=== PATIENT | female | born 1950 | race Caucasian/White ===

== ENCOUNTER → 2024-11-02 07:11 | Outpatient (REF) | payer OTHER, SELFPAY | LOC: RAD 07:11 | PROVIDERS: ATTENDING PHYSICIAN Orthopaedic Surgery; FAMILY PHYSICIAN Internal Medicine | DX: M79.662 Pain in left lower leg (principal) | CPT/HCPCS: 93971 ==

== ENCOUNTER 2024-11-07 15:30 | Observation (INO) | payer OTHER, SELFPAY ==
[2024-11-07] VITALS (11 sets, daily range): BP systolic 105–157; BP diastolic 70–99; BMI 20.9; BMI 20.6
--- NOTE | 2024-11-07 09:03 | ED.GENMED ---
History of Present Illness
General
Chief Complaint: Back Pain
Source: patient
Exam Limitations: none
Time Seen by Provider: 11/07/24 09:00
History of Present Illness
History of Present Illness:
74yoF with a history of osteoporosis and remote history of thyroid cancer in the 80s currently on Synthroid presenting with her for evaluation of leg weakness. She started to experience balance issues at the end of August. She typically walks
4+ miles a day but now feels like she is trudging. She feels like both of her legs are weak, particularly from the knees down. Patient is very active and does yoga. She is now unable to do a tree pose. She also reports low back discomfort which
she believes started after her balance issues began. Her back pain is worse in the left lower lumbar region. There has been no trauma. She has no symptoms in the upper extremities. She denies any paresthesias, bowel/bladder issues, visual
changes, headache. Patient has been seen by her PCP for these symptoms and has an MRI of her brain and lumbar spine scheduled in August. She has been participating in physical therapy for the past 6 weeks and has not noticed any improvement. She is
particularly having difficulty with standing up on her toes while participating in PT. Patient is very concerned and feels like she will not be able to walk if her symptoms are not addressed.
Phy Exam
General Physical Exam
General Presentation: well appearing and no apparent distress
General Skin: warm and dry
General Habitus: normal
General Mental: alert
ENT Exam
ENT Exam: normocephalic
Pulmonary Exam
Pulmonary Exam: no respiratory distress
Neurological Exam
Neurological Exam: alert, CN II-XII intact, normal reflexs, no sensory deficits, speech normal and other (Ambulated without difficulty into exam room. 4/5 strength with L hip extension bilaterally. No foot drop. No sensory deficit noted in lower
extremities. 2+ patellar reflexes. )
[place] Coma Scale
Eye Opening: Spontaneous
Verbal Response: Oriented
Motor Response: Obeys Commands
GCS Total Score: 15
Musculoskeletal Exam
Musculoskeletal Exam: other (+Tenderness to bilateral lumbar region. No skin changes. Able to flex trunk to 90 degrees.)
Skin Exam
Skin Exam: normal color and warm/dry
Psychiatric Exam
Psychiatric Exam: normal mood/affect
Course
Orders/Labs/Results
Orders:
Orders
11/07/24 09:26
CT Head W/o Iv Contrast Urgent
Comment:
Reason For Exam: leg weakness
CT Lumbar Spine W/o Iv Contras Urgent
Comment:
Reason For Exam: low back pain, leg weakness
11/07/24 10:13
NEUROLOGY CONSULT Urgent
Consulting Provider: Kahlil Smalls
Was physician already notified: Yes
11/07/24 11:40
Acetaminophen [Tylenol] 1,000 mg PO NOW STA
Ibuprofen [Motrin] 600 mg PO NOW STA
11/07/24 15:09
Admit/Transfer Patient As Directed
Co-Sign Provider:
Level of Care: Observation services
Assign to:: Medical/Surgical
Physician / Group: [facility]
Diagnosis: Subacute progressive lower extremity weakness with gait imbalance
Reason for Hospitalization: Subacute progressive lower extremity weakness with gait imbalance failed OP PT
11/07/24 15:11
Code Status As Directed
Resuscitation Status: Full Code
11/07/24 15:13
MA Neck Without Contrast Routine
Comment:
Reason For Exam: myelopathy
OK for patient to be off Cardiac Monitoring for MRI: Yes
Recent pill cam endoscopy?: No
Pacemaker/Defibrillator?: No
Brain Aneurysm Clips?: No
Have you ever worked with metal? grinding metal? welding?: No
Cochlear(ear) implants?: No
Does Pt have a Temp Sensing Cath?: No
Does the patient have IV access?: Yes
Does the patient have any stents?: No
MR Cervical Spine Without Routine
Comment:
Reason For Exam: myelopathy
Recent pill cam endoscopy?: No
11/07/24 15:37
Complete Blood Count/With Diff Urgent
Comprehensive Metabolic Panel Urgent
Lyme Progressive Urgent
TSH Reflex To Free T4 Urgent
Vital Signs
Initial and Last Documented VS:
Initial Vital Signs
Temp Pulse Resp BP Pulse Ox
98.2 F 90 18 137/72 98
11/07/24 07:52 11/07/24 07:52 11/07/24 07:52 11/07/24 07:52 11/07/24 07:52
Last Documented Vital Signs
Temp Pulse Resp BP Pulse Ox
98.2 F 78 16 135/85 98
11/07/24 07:52 11/07/24 13:20 11/07/24 13:20 11/07/24 13:20 11/07/24 13:20
MDM/Problems Addressed
Differential Diagnosis Includes:
74yoF here with bilateral leg weakness x 2 months. Feels like she is trudging and having issues with balance. Also having low back pain. Has been seen by her PCP for the same and has MRI scheduled in 2 months. No bowel/bladder issues. VSS. Patient
able to ambulate into exam room without any ataxia or obvious difficulty. There is weakness noted with hip extension. Patellar reflexes are 2+. Differential diagnosis includes but is not limited to: lumbar radiculopathy, peripheral neuropathy, MS,
doubt Guillain [place] as reflexes are present
Initial ED plan: Check CT head and CT lumbar spine. Will discuss with neurology.
*Pulse Oximetry
SaO2: 98
Oxygen Mode of Delivery: Room air
Patient hypoxic: no (98%)
*Critical Care Note
Total Time (30-74mins, 75-104mins- exclusive of procedures): Not Applicable
Update Note
Update Note:
Imaging negative for acute findings. Degenerative changes noted in lumbar region. Patient evaluated by neurology. Will admit for MRI and further evaluation.
ED Attending Note
-
Portions of this chart may have been created with voice recognition software.� Occasional wrong word or��sound alike� substitutions may have occurred due to the inherent limitations of voice recognition software.
Discharge Plan
Departure
Patient Disposition: Admit
Date of Disposition: 11/07/24
Time of Disposition: 14:41
Presentation/result/management discussed w/ accepting MD/DO: Hospitalist
Discharge Problem:
Bilateral leg weakness
Interventions
Interventions:
*Risk Screen - Suicide Last Done: 11/07/24 07:52
*General Assessment Last Done: 11/07/24 07:52
*Neglect/Abuse Screening Last Done: 11/07/24 09:28
*ED COVID-19 Vaccine History Last Done: 11/07/24 07:52
ED-Musculoskeletal Assessment Last Done: 11/07/24 09:25
--- NOTE | 2024-11-07 09:06 | EDRN ---
José MANZO in room w/ pt at this time.
--- NOTE | 2024-11-07 09:14 | EDRN ---
Pt ambulated from Triage WR w/out difficulty and declined to come back to room in w/c each of 2 times offered.
--- NOTE | 2024-11-07 11:38 | EDRN ---
José MANZO was TT'd for pt's request for nonnarcotic pain medication. Pt states pain is bearable at 4/10.
[2024-11-07] MEDS: MOTRIN 600 MG PO (11:49)
--- NOTE | 2024-11-07 13:52 | EDRN ---
Dr. Smalls in room w/ pt at this time.
--- NOTE | 2024-11-07 15:02 | HPS.HSE ---
Family Physician
-
Family Physician: Tennille Jackson
Chief Complaint
-
evaluation of leg weakness and experience balance issues at the end of August.
History of Present Illness
74F HX osteoporosis and remote HX thyroid CA in the 80s currently on Synthroid seen at ER:
- pw for evaluation of leg weakness.
- experience balance issues at the end of August.
- typically walks 4+ miles a day but now feels like she is trudging
- reports both legs are weak, particularly from the knees down.
- at baseline , she is very active and does yoga.- now unable to do a tree pose.
- reports low back discomfort which she believes started after her balance issues began.
- back pain is worse in the left lower lumbar region.
- no HX rauma
- no symptoms in the upper extremities.
- has been participating in physical therapy for the past 6 weeks and has not noticed any improvement.
- particularly having difficulty with standing up on her toes while participating in PT.
Patient has been seen by her PCP for these symptoms and has an MRI of her brain and lumbar spine scheduled in August.
ROS
denies any paresthesias, bowel/bladder issues
Patient is very concerned and feels like she will not be able to walk if her symptoms are not addressed.
Medical History
Past Medical History
Past Medical History: Reports Cancer (Thyroid CA in the 80s currently on Synthroid ) and Other (osteoporosis )
Past Surgical History: Reports Other (Thyroidectomy for thyroid CA in the 80s )
Social History
Tobacco: Non-smoker
Alcohol: None
Family History
Family History: Not pertinent
Allergies / Home Medications
Allergies reflects when Allergies were last updated in [facility].
Home Medications with original date entered in [facility]
Allergy/Medication List:
Allergies
Allergy/AdvReac Type Severity Reaction Status Date / Time
No Known Allergies Allergy Unverified 11/07/24 07:58
Home Medications
Prevagen 1 cap PO DAILY 11/07/24
alendronate 70 mg tablet (Fosamax) 70 mg PO MO 11/07/24
bupropion HCl 150 mg 24 hr tablet, extended release 150 mg PO DAILY 11/07/24
levothyroxine 112 mcg tablet (Synthroid) 112 mcg PO DAILY 11/07/24
Review of Systems
-
Constitutional: Reports No Symptoms
EENT: Reports No Symptoms
Respiratory: Reports No Symptoms
Cardiac: Reports No Symptoms
Abdomen/GI: Reports No Symptoms
: Reports No Symptoms
Musculoskeletal: Reports No Symptoms
Skin: Reports No Symptoms
Neurological: Reports See HPI and Weakness ([place] especially distal muscle group ); Denies Headache
Endocrine: Reports No Symptoms
Hematologic/Lymphatic: Reports No Symptoms
Psych: Reports No Symptoms
Physical Exam
Vital Signs
Vital Signs
Temp Pulse Resp BP Pulse Ox
98.2 F 78 16 135/85 98
11/07/24 07:52 11/07/24 13:20 11/07/24 13:20 11/07/24 13:20 11/07/24 13:20
Physical Exam
General: Well Developed, Well Nourished and No Apparent Distress
HEENT: NormoCephalic, Moist mucous membranes and Atraumatic
Respiratory: Clear
Cardiac: S1/S2 and Regular Rhythm; No Murmur or Rub
GI: Soft, Non Tender, Non Distended and Normal Bowel Sounds; No Organomegaly
Rectal: Deferred by Provider
Musculoskeletal: No Clubbing, No Cyanosis and No Edema
Skin: No Rash
Neuro: Awake, Alert, AO x 3, No Sensory Deficits, DTR's Intact & Symmetrical and Other (PLEAT TAPER: - Nl and symmetric DTR - . 2+ b/l KJs - No sensory deficit noted in lower extremities. - speech normal - ambulated without difficulty into exam room -
4/5 strength with L hip extension bilaterally. - no foot drop)
Psych: Calm and Intact Judgment/Insight
Laboratory Results
-
pending CBC and CMP
Data Reviewed
-
CT Scan: Report Reviewed by me
Impression/Plan
-
Vital Signs
Temp Pulse Resp BP Pulse Ox
98.2 F 78 16 135/85 98
11/07/24 07:52 11/07/24 13:20 11/07/24 13:20 11/07/24 13:20 11/07/24 13:20
Relevant Data
Pending CBC and BMP
HCT
- No acute intracranial abnormality.
CT Lumbar Spine W/o Iv Contrast
- No findings to suggest recent lumbar spine fracture including lumbar vertebral compression fracture.
- Mild levoscoliosis of the lumbar spine.
- Disc bulges with degenerative changes at multiple levels throughout the lumbar spine, degenerative changes most prominent at the L2-L3 level.
- Evaluation for disc herniation cannot be excluded, markedly limited with this imaging modality without intrathecal contrast.
- Multiple hepatic low-attenuation lesions partially included on this study, only the largest of which can be confirmed as cysts.
11/02/24 LLEX US for pain and swelling
- No evidence of left lower extremity deep venous thrombosis from the common femoral through the upper calf veins.
No prior hospitalist admission:
ASSESSMENT & PLAN
Subacute progressive lower extremity weakness with gait imbalance
- No radicular or signs of cord compresion
- not improving with outpatient PT.
- NEG HCT
- CT Lx spine suggest most prominent DJDs and disc bulges at L2-L3
- MRI of Cx and Lx spine with contrast
- Neuro consulted and recommended admission.
- PT/OT
Remote HX Thyroid CA s/p total thyroidectomy
- on LT4
Anxiety
- on Bupropion
HX Osteoporosis
- on Fosamax q month
DVT Px: LMWH
Full code
OBS MS
--- NOTE | 2024-11-07 15:14 | CON.NEURO ---
Neuro Assessment/Plan
Assessment
History sounds like ALS, several months of progressive left then right leg weakness. exam with exam with leg weakness, decreased tone in calves, fasciculations, babinski, White. Except her sensory exam makes no sense. and would be expected to be
normal in ALS.
would admit and begin workup with MRI cervical/thoracic spine for myelopathy, and EMG to eval for ALS
low back pain iliolumbar, SI joint subluxation on exam, probably the result of whatever is causing her underlying weakness
Consultation
Order
Date of Consultation: 11/07/24
Requesting Provider: Reyna
Reason for Consult: leg weakness
Subjective/Objective
Subjective Data
Date of Service: November 07, 2024
from ED note:
74yoF with a history of osteoporosis and remote history of thyroid cancer in the 80s currently on Synthroid presenting with her for evaluation of leg weakness. She started to experience balance issues at the end of August. She typically walks
4+ miles a day but now feels like she is trudging. She feels like both of her legs are weak, particularly from the knees down. Patient is very active and does yoga. She is now unable to do a tree pose. She also reports low back discomfort which
she believes started after her balance issues began. Her back pain is worse in the left lower lumbar region. There has been no trauma. She has no symptoms in the upper extremities. She denies any paresthesias, bowel/bladder issues, visual
changes, headache. Patient has been seen by her PCP for these symptoms and has an MRI of her brain and lumbar spine scheduled in August. She has been participating in physical therapy for the past 6 weeks and has not noticed any improvement. She is
particularly having difficulty with standing up on her toes while participating in PT. Patient is very concerned and feels like she will not be able to walk if her symptoms are not addressed.
symptoms started in her left leg then moved to right leg. started distal then proximal. +occasional cramps, +twitching, no sensory symptoms, no speech/respiratory/vision/upper ext symptoms
Objective Data
Vital Signs
Temp Pulse Resp BP Pulse Ox
36.8 C 78 16 135/85 98
11/07/24 07:52 11/07/24 13:20 11/07/24 13:20 11/07/24 13:20 11/07/24 13:20
Patient Allergies
No Known Allergies Allergy (Unverified 11/07/24 07:58)
Physical Exam
-
b/l UE full strength
RLE 4+/5, LLE 4/5, decreased tone
+fasciculations lower ext,
reflexes slightly brisk with some spread, +babinski, +White.
Decrease pin prick entire right leg and entire right hand, and left hand digits one through two into the lateral forearm. Trace vibratory loss right leg, and left arm.
palpatied SI joint subluxation with tender left iliolumbar
Medications
-
Home Medications
�Medication �Instructions �Recorded
Prevagen 1 cap PO DAILY 11/07/24
alendronate 70 mg tablet (Fosamax) 70 mg PO MO 11/07/24
bupropion HCl 150 mg 24 hr tablet, 150 mg PO DAILY 11/07/24
extended release
levothyroxine 112 mcg tablet 112 mcg PO DAILY 11/07/24
(Synthroid)
--- NOTE | 2024-11-07 15:27 | EDRN ---
Dr. Marinelli in to see pt.
[2024-11-07 15:48] LABS: Hematocrit 40.2 % (37.0-47.0); Hemoglobin 13.2 g/dL (12.0-16.0); Mean Corp Hgb Conc. 32.8 g/dL (33.0-37.0); Mean Corpuscular Volume 84.3 fL (81.0-99.0); Nucleated Red Blood Cells % 0 %; Platelet Count 226 10^3/uL (130-400); Red Cell Dist. Width 13.7 % (11.5-14.5)
[2024-11-07 16:10] LABS: ALT (SGPT) 37 U/L (0-35); AST (SGOT) 42 U/L (14-36); Albumin 4.5 g/dl (3.5-5.0); Alkaline Phosphatase 57 U/L (38-126); Blood Urea Nitrogen 15 mg/dl (7-17); Calcium 9.6 mg/dl (8.4-10.2); Carbon Dioxide 28 mmol/L (22-30); Chloride 104 mmol/L (98-107); Estimated Creatinine Clearance 57 ml/min; Glucose 90 mg/dl (70-99); Potassium 4.0 mmol/L (3.5-5.1); Sodium 138 mmol/L (135-145); Total Protein 6.6 g/dl (6.3-8.2); eGFR > 60.00
--- NOTE | 2024-11-07 18:32 | EDRN ---
Pt requested an order for motrin in case her pain returns. No order for motrin w/ Dr. Marinelli TT'd and he said no prn order for motrin d/t pt's age but if she has pain she can request motrin if tylenol not effective. Pt informed of this plan and okay
w/ this plan.
[2024-11-07] MEDS: LOVENOX 40 MG SC (20:14)
[2024-11-07] MEDS: MELATONIN 5 MG PO (23:21)
--- NOTE | 2024-11-08 04:07 | PTCARENOTE ---
Pt received from ER [email or web address] able to make her needs known.Denies pain,resting comfortably.Pt encouraged to call for help as needed. Pt oriented to room & call morgan in reach.
--- NOTE | 2024-11-08 07:30 | W.PN.HOSP.TC ---
Today's Communication/Plan
-
Patient lined up for EMG and MRI of the lumbar spine and cervical spine
PT OT evaluations
Activity as tolerated
Assessment / Plan
Assessment / Plan
HPI: Patient is a 74-year-old woman with a history of osteoporosis and history of thyroid cancer in the 80s currently on Synthroid presenting with her for evaluation of leg weakness. Her symptoms began in late August. She initially started to
experience balance issues. She typically walked 4+ miles a day but lately had been feeling like she was not able to ambulate as she usually was able to. She felt like both of her legs were weak, particularly from the knees down. The patient is
very active and does yoga. At the time of her presentation she struggled to do her normal yoga exercises. She reported low back discomfort which she believes started after her balance issues began. Her back pain was worse in the left lower lumbar
region. There is no history of trauma to that area. She had no symptoms in her upper extremities. She denied any paresthesias, bowel/bladder issues, visual changes, headache. The patient had already been seen by her primary care provider for the
symptoms and has had an MRI of her brain and lumbar spine scheduled in August. She had been participating in physical therapy for the past 6 weeks prior to her presentation and had not noticed any improvement. She was particularly having difficulty
standing up on her toes while participating in PT. Patient stated that her symptoms started in her left leg then moved to her right leg. Started distal than proximal. She had occasional cramps, twitching, no sensory symptoms, no
speech/respiratory/vision/upper extremity symptoms. Patient was very concerned and believed that her symptoms may continue to progress if they are not addressed. The patient was admitted to [facility] under observation for progressive lower extremity
weakness with gait imbalance.
Assessment/Plan:
Progressive lower extremity weakness with gait imbalance: Unresolved�monitoring
No radicular signs of cord compression on physical exam
Symptoms not improving despite outpatient PT for 6 weeks
Low back pain worse on the left lower lumbar region that started when her balance issues began
Particularly has difficulty when standing up on her toes while participating in PT
Head CT unremarkable
CT of the lumbar spine suggest prominent DJD's and disc bulges at L2-L3
MRI of cervical spine and lumbar spine with contrast ordered
Lyme serology ordered
EMG ordered
Neurology consulted�appreciate neurology recommendations -lab work ordered to rule out ALS
PT OT eval and treat
-Anxiety: Stable�monitoring
Continue bupropion
-Hypothyroidism: Stable�monitoring
Continue levothyroxine
FULL CODE STATUS
Imaging:
- Lumbar spine CT conducted on 11/07/2024:
No findings to suggest recent lumbar spine fracture including lumbar vertebral compression fracture.
Mild levoscoliosis of the lumbar spine.
Disc bulges with degenerative changes at multiple levels throughout the lumbar spine, degenerative changes most prominent at the L2-L3 level. Evaluation for disc herniation cannot be excluded, markedly limited with this imaging modality without
intrathecal contrast.
Multiple hepatic low-attenuation lesions partially included on this study, only the largest of which can be confirmed as cysts.
- Head CT conducted on 11/07/2024:
No acute intracranial abnormality
Procedures: Not applicable
Anticipated Discharge: 24 - 48 hours
Subjective/Interval History
-
Date of Service: November 08, 2024
Met with patient at the bedside. She is kind and pleasant in conversation. She discussed her ongoing neurologic issues involving her lower limb weakness. Unfortunately she is not able to engage in the activities that she usually does. She lives
a very active life and eats healthily. Is the happy grandmother of 2 young grandchildren that she spends frequent time with. She moved to [place] to be closer to her family and be around her grandchildren. was at the bedside and
shared our current plans to get an EMG and MRI of the lumbar spine and cervical spine.
Objective Data
-
Labs:
Labs
11/08/24 07:41
11/08/24 07:41
Vital Signs:
Vital Signs
Temp Pulse Resp BP Pulse Ox
98.0 F 83 18 127/73 96
11/07/24 23:29 11/07/24 23:29 11/07/24 23:29 11/07/24 23:29 11/07/24 23:29
I&O
11/07/24 11/08/24 11/09/24
06:59 06:59 06:59
Intake Total 480 / 480
Balance 480 / 480
Review of Systems
-
History Source: Patient
Constitutional: Reports No Symptoms
EENT: Reports No Symptoms Reported
Respiratory: Reports No Symptoms
Cardiac: Reports No Symptoms
Abdomen/GI: Reports No Symptoms
Breast: Reports No Symptoms
Genitourinary: Reports No Symptoms
Musculoskeletal: Reports Muscle Weakness (Lower limb weakness)
Skin: Reports No Symptoms
Neuro: Reports No Symptoms
Endocrine: Reports No Symptoms
Hematologic / Lymphatic: Reports No Symptoms
Physical Exam
-
General: Well Developed, Well Nourished, No Apparent Distress and Comfortable
HEENT: Normocephalic, Atraumatic and Moist Mucous Membranes
Respiratory: Clear to Auscultation and Non Labored Respirations; Negative Wheezes, Rales, Rhonchi or Crackles
Cardiac: Regular Rhythm and S1/S2
Breast: Deferred by me
GI: Soft, Nontender, Nondistended and Normal Bowel Sounds
Rectal: Deferred by Provider
Genito-urinary: Deferred by me
Musculoskeletal: No Clubbing, No Cyanosis and No Edema
Skin: Warm and Dry; Negative Rash, Ulcers or Lesions
Neuro: Awake, Alert, Oriented and AO x 3
Psych: Calm
[2024-11-08] MEDS: TYLENOL 650 MG PO ×2 (07:32→19:21)
[2024-11-08 07:35] VITALS: BP 128/77
[2024-11-08] MEDS: SYNTHROID 112 MCG PO (08:16)
[2024-11-08] MEDS: WELLBUTRIN XL (24 hour extended release) 150 MG PO (08:16)
[2024-11-08 08:17] LABS: Hematocrit 41.6 % (37.0-47.0); Hemoglobin 13.5 g/dL (12.0-16.0); Mean Corp Hgb Conc. 32.5 g/dL (33.0-37.0); Mean Corpuscular Volume 85.2 fL (81.0-99.0); Platelet Count 233 10^3/uL (130-400); Red Cell Dist. Width 13.6 % (11.5-14.5)
[2024-11-08 08:54] LABS: Blood Urea Nitrogen 13 mg/dl (7-17); Calcium 9.7 mg/dl (8.4-10.2); Carbon Dioxide 34 mmol/L (22-30); Chloride 103 mmol/L (98-107); Estimated Creatinine Clearance 57 ml/min; Glucose 83 mg/dl (70-99); Potassium 4.1 mmol/L (3.5-5.1); Sodium 138 mmol/L (135-145); eGFR > 60.00
[2024-11-08 09:20] LABS: TSH 0.86 uIU/ml (0.47-4.68)
--- NOTE | 2024-11-08 09:32 | W.PN.NEURO.1 ---
Addendum entered and electronically signed by Eddie Hernández MD 11/08/24 14:52:
Studies reviewed.
I have personally examined the patient. I reviewed and agree with the CORONARY CARE UNIT NURSE's Note.
My addenda:
Awake, alert, interactive. No acute distress.
Speech intact.
Follows 2-step requests w/o difficulty. No tremor.
Extra-ocular movements grossly intact.
Facial movements full and symmetric. Hearing intact to normal conversational volume.
Normal UE movements bilaterally.
Neck: full ROM.
Chest: no dyspnea
Heart: no JVD
Ext: (-) Clubbing, (-) Cyanosis, (-) Edema
IMPRESSIONS/RECOMMENDATIONS:
Abrupt onset of lower extremity weakness, specifically difficulty with dorsiflexion bilaterally left greater than right
Most likely due to lumbar radiculopathy. There is no evidence at this time of ALS.
Agree with completion of EMG study to ensure absence of additional malignant process
Appreciate physical therapy evaluation and treatment
Check blood work for potential metabolic abnormalities
Follow lumbar spine and cervical spine MRI results
D/W patient / family.
Will continue to follow pending results.
Original Note:
Documented by User: Alessandra Landon NP 11/08/24 11:30
Today's Communication / Plan
-
-EMG as planned
-MRI lumbar spine as planned
-PT/OT evaluations
-fall precautions
Neuro Assessment/Plan
Assessment
74yo F with a history of osteoporosis and remote history of thyroid cancer in the 80s currently on Synthroid presented to [facility] on 11/07/24 with her for evaluation of leg weakness.
Head CT: No acute intracranial abnormality.
Lumbar CT: No findings to suggest recent lumbar spine fracture including lumbar vertebral compression fracture. Mild levoscoliosis of the lumbar spine. Disc bulges with degenerative changes at multiple levels throughout the lumbar spine,
degenerative changes most prominent at the L2-L3 level. Evaluation for disc herniation cannot be excluded, markedly limited with this imaging modality without intrathecal contrast. Multiple hepatic low-attenuation lesions partially included on this
study, only the largest of which can be confirmed as cysts.
Plan
Impressions: lumbar radiculopathy superimposed on peripheral neuropathy
-EMG as planned
-MRI lumbar spine as planned
-PT/OT evaluations
-fall precautions
All questions encouraged and answered, plan of care reviewed with Dr. Hernández, hospitalist, patient and family
Subjective/Objective
Subjective Data
Date of Service: November 08, 2024
States she was getting PT outpatient for 6 weeks for balance and lower extremity weakness without improvement in her symptoms. Admits to left lower back pain, dorsiflexion weakness bilaterally and balance issues. Denies upper extremity weakness.
Denies issues with bowel/bladder.
Objective Data
Vital Signs
Temp Pulse Resp BP Pulse Ox
97.9 F 81 16 128/77 96
11/08/24 07:35 11/08/24 07:35 11/08/24 07:35 11/08/24 07:35 11/08/24 07:35
Lab Results
11/08/24 07:41
11/08/24 07:41
Sodium 138 mmol/L (135-145) 11/08/24 07:41
Potassium 4.1 mmol/L (3.5-5.1) 11/08/24 07:41
BUN 13 mg/dl (7-17) 11/08/24 07:41
Glucose 83 mg/dl (70-99) 11/08/24 07:41
Calcium 9.7 mg/dl (8.4-10.2) 11/08/24 07:41
Patient Allergies
No Known Allergies Allergy (Unverified 11/07/24 07:58)
Physical Exam
-
General: No Apparent Distress, Comfortable and Appears Stated Age
HEENT: Normocephalic, Atraumatic and Anicteric
Neck: Full Range of Motion
Respiratory: No Dyspnea
Cardiac: No JVD
GI: Non-distended
Skin: Unremarkable
Extremities: No Clubbing, No Cyanosis and No Edema
Psych: Unremarkable
Extended Neurological Exam
Mood & Affect: Mood Unremarkable
Attention Span & Concentration: Awake, Alert, Interactive and No Difficulty with 2 Step Request
Memory: Unremarkable
Tremor: Hand Tremor Absent and Head Tremor Absent
Speech: Quality Unremarkable, Quantity Unremarkable and Rate of Production Unremarkable
Cranial Nerve VII: Facial Symmetry: Normal Facial Symmetry
Cranial Nerve VIII: Hearing: Unremarkable Hearing to Normal Conversational Volume
Cranial Nerves IX, X: Palate Movement: Palate Elevation Symmetric
Cranial Nerve XII: Tongue Protusion: Other (no fasciculations )
Muscle Strength, Overall: Reduced (DF bilaterally)
Deep Tendon Reflexes: Absent (lower extremities distally)
Coordination: Reaches for Objects without Difficulty
Gait & Station: Toe Standing Unremarkable, Romberg Test Positive and Other (difficulty with heel standing, steppage gait)

Documented by User: Eddie Hernández MD 11/08/24 14:43
Past History
Past History
ED Past Medical History: Cancer (Thyroid 1980s) and Other (Osteoporosis)
ED Past Surgical History: Other (Thyroidectomy )
Social History
Personal:
Living: with family
Medications
-
Medications:
Generic Name Dose Route Start Last Admin
Trade Name Freq PRN Reason Stop Dose Admin
Acetaminophen 650 mg 11/07/24 19:11 11/08/24 07:32
Acetaminophen 325 Mg Tablet PO 12/05/24 19:10 650 mg
Q4HPRN PRN Administration
mild pain/PEPE/temp> 100.4F
Bisacodyl 10 mg 11/07/24 19:11
Bisacodyl 10 Mg Rectal Suppository RECTAL 12/05/24 19:10
[id number] PRN
constipation
Bupropion HCl 150 mg 11/08/24 08:00 11/08/24 08:16
Bupropion (24hr) Extended Release 150 Mg Tablet PO 12/06/24 07:59 150 mg
DAILY JOSÉ ANTONIO Administration
Enoxaparin Sodium 40 mg 11/07/24 19:11 11/07/24 20:14
Enoxaparin Sodium 40 Mg/0.4 Ml Syringe SC 12/05/24 19:10 40 mg
QPM JOSÉ ANTONIO Administration
Levothyroxine Sodium 112 mcg 11/08/24 08:00 11/08/24 08:16
Levothyroxine 112 Mcg Tablet PO 12/06/24 07:59 112 mcg
DAILY JOSÉ ANTONIO Administration
Lorazepam 1 mg 11/08/24 09:12 11/08/24 11:31
Lorazepam 2 Mg/Ml Vial IV 11/08/24 23:59 1 mg
ONCE PRN PRN Administration
claustrophobia
Polyethylene Glycol 17 grams 11/07/24 19:11
Polyethylene Glycol Powder 17 Grams Packet PO 12/05/24 19:10
DAILYPRN PRN
constipation
Senna/Docusate Sodium 1 tablet 11/07/24 19:11
Docusate W/Senna (Sydni-Colace) Tablet PO 12/05/24 19:10
BIDPRN PRN
constipation
Sodium Chloride 0.5 ml 11/08/24 09:40 11/08/24 11:31
Nss (Pf) 10 Ml Vial For Ativan 1 Mg Dose IV 11/08/24 23:59 0.5 ml
ONCE PRN PRN Administration
IV LORAZEPAM DILUTION
Zolpidem Tartrate 5 mg 11/08/24 12:34
Zolpidem Tartrate 5 Mg Tablet PO 12/06/24 12:33
HSPRN PRN
sleep
[2024-11-08 09:39] LABS: Vitamin B12 522 pg/ml (239-931)
[2024-11-08] MEDS: ATIVAN 1 MG IV (11:31)
[2024-11-08] MEDS: NSS (PRESERVATIVE FREE) 0.5 ML IV (11:31)
--- NOTE | 2024-11-08 15:00 | CM ---
Patient seen bedside, initial assessment completed. Admitted for evaluation of leg weakness and balance issues.
Patient resides w/ spouse in a 2STH, no steps to enter. Full flight of stairs to the second floor where bed and bath are located. Patient is independent w/ ambulation, no device required. Independent w/ ADLs, no DME. Patient is current w/ OP PT at
[facility] in [place]. No HC hx reported.
Address, point of contact and insurance verified
PCP: Tennille Jackson
Pharmacy: [facility]
Patient currently admitted obs. ROGERS form verbally reviewed, copy provided, copy on chart
Therapy assessed, rec OP PT at d/c. Will ask hospitalist for script
Plan: Home, resume OP PT
[2024-11-08 15:30] VITALS: BP 106/72
[2024-11-08 15:58] LABS: C-Reactive Protein < 5.00 mg/L (0.0-10.00)
[2024-11-08 16:17] LABS: CKMB 4.6 ng/ml (0.0-3.4)
[2024-11-08] MEDS: LOVENOX 40 MG SC (17:11)
--- NOTE | 2024-11-08 19:12 | W.PN.UPDATE ---
Update Note
Progress Note Update
Multiple electrodiagnostic abnormalities are present in both lower limbs (which reflect both chronic and active/acute muscle denervation) including increased insertional activity, abnormal spontaneous activity in the form of fibrillations and
positive sharp waves, polyphasic and large motor unit potentials with reduced recruitment, which is seen in motor neuron pathology including anterior horn cell disease.
Full dictated report and tabular data to follow.
[2024-11-08 23:53] VITALS: BP 102/54
[2024-11-09] MEDS: TYLENOL 650 MG PO (02:12)
--- NOTE | 2024-11-09 02:56 | DOWNTIME ---
There was a Art Qualified Client Jukebox Checker Downtime on 11/09/2024 from 0100 to 11/09/2024 at 0220. Downtime documentation of patient's care, including medication administrations, has been reconciled in the electronic record per guidelines. Refer to the
patient's paper chart under the miscellaneous tab to see printed paper medication records and downtime forms.
--- NOTE | 2024-11-09 02:57 | DOWNTIME ---
There was a docplanner Client Supervisor Furnace Process Downtime on 11/09/2024 from 0100 to 11/09/2024 at 0220. Downtime documentation of patient's care, including medication administrations, has been reconciled in the electronic record per guidelines. Refer to the
patient's paper chart under the miscellaneous tab to see printed paper medication records and downtime forms.
[2024-11-09] MEDS: SYNTHROID 112 MCG PO (06:04)
[2024-11-09] MEDS: MOTRIN 400 MG PO (07:20)
[2024-11-09 07:57] VITALS: BP 108/71
[2024-11-09 08:26] LABS: Hematocrit 39.2 % (37.0-47.0); Hemoglobin 12.9 g/dL (12.0-16.0); Mean Corp Hgb Conc. 32.9 g/dL (33.0-37.0); Mean Corpuscular Volume 83.8 fL (81.0-99.0); Platelet Count 225 10^3/uL (130-400); Red Cell Dist. Width 13.4 % (11.5-14.5)
[2024-11-09 08:28] LABS: ALT (SGPT) 31 U/L (0-35); AST (SGOT) 34 U/L (14-36); Albumin 4.3 g/dl (3.5-5.0); Alkaline Phosphatase 45 U/L (38-126); Blood Urea Nitrogen 12 mg/dl (7-17); Calcium 9.6 mg/dl (8.4-10.2); Carbon Dioxide 27 mmol/L (22-30); Chloride 105 mmol/L (98-107); Estimated Creatinine Clearance 67 ml/min; Glucose 88 mg/dl (70-99); Potassium 4.6 mmol/L (3.5-5.1); Sodium 137 mmol/L (135-145); Total Protein 6.4 g/dl (6.3-8.2); eGFR > 60.00
[2024-11-09] MEDS: WELLBUTRIN XL (24 hour extended release) 150 MG PO (10:02)
[2024-11-09 11:19] VITALS: BP 123/72
--- NOTE | 2024-11-09 12:09 | W.PN.HOSP.TC ---
Today's Communication/Plan
-
Patient is medically stable and we have done his much diagnostic test as we can during this hospital admission and patient would like to go home
Will move forward with discharge planning and ensure that the patient is in contact with the ALS clinic at [facility] where they hopefully will be able to give a more definitive diagnosis and do further testing
Assessment / Plan
Assessment / Plan
HPI: Patient is a 74-year-old woman with a history of osteoporosis and history of thyroid cancer in the 80s currently on Synthroid presenting with her for evaluation of leg weakness. Her symptoms began in late August. She initially started to
experience balance issues. She typically walked 4+ miles a day but lately had been feeling like she was not able to ambulate as she usually was able to. She felt like both of her legs were weak, particularly from the knees down. The patient is
very active and does yoga. At the time of her presentation she struggled to do her normal yoga exercises. She reported low back discomfort which she believes started after her balance issues began. Her back pain was worse in the left lower lumbar
region. There is no history of trauma to that area. She had no symptoms in her upper extremities. She denied any paresthesias, bowel/bladder issues, visual changes, headache. The patient had already been seen by her primary care provider for the
symptoms and has had an MRI of her brain and lumbar spine scheduled in August. She had been participating in physical therapy for the past 6 weeks prior to her presentation and had not noticed any improvement. She was particularly having difficulty
standing up on her toes while participating in PT. Patient stated that her symptoms started in her left leg then moved to her right leg. Started distal than proximal. She had occasional cramps, twitching, no sensory symptoms, no
speech/respiratory/vision/upper extremity symptoms. Patient was very concerned and believed that her symptoms may continue to progress if they are not addressed. The patient was admitted to [facility] under observation for progressive lower extremity
weakness with gait imbalance.
Assessment/Plan:
Progressive lower extremity weakness with gait imbalance: Unresolved�monitoring
No radicular signs of cord compression on physical exam
Symptoms not improving despite outpatient PT for 6 weeks
Low back pain worse on the left lower lumbar region that started when her balance issues began
Particularly has difficulty when standing up on her toes while participating in PT
Head CT unremarkable
CT of the lumbar spine suggest prominent DJD's and disc bulges at L2-L3
MRI of cervical spine and lumbar spine with contrast ordered
Lyme serology ordered
EMG was abnormal in both lower limbs including increased insertional activity, abnormal spontaneous activity in the form of fibrillations and positive sharp waves, polyphasic and large motor unit potentials with reduced recruitment, which is seen
in motor neuron pathology including anterior horn disease
Neurology consulted�appreciate neurology recommendations -lab work ordered to rule out ALS -serology pending
Neurology has gotten in contact with [facility]'s ALS clinic and get her in touch with the ALS specialist. They will reach out to her in the near future and expedite evaluation. [facility] will likely conduct more tests and evaluations in
order to make a definitive diagnosis.
PT OT eval and treat
-Anxiety: Stable�monitoring
Continue bupropion
-Hypothyroidism: Stable�monitoring
Continue levothyroxine
FULL CODE STATUS
Imaging:
- Lumbar spine CT conducted on 11/07/2024:
No findings to suggest recent lumbar spine fracture including lumbar vertebral compression fracture.
Mild levoscoliosis of the lumbar spine.
Disc bulges with degenerative changes at multiple levels throughout the lumbar spine, degenerative changes most prominent at the L2-L3 level. Evaluation for disc herniation cannot be excluded, markedly limited with this imaging modality without
intrathecal contrast.
Multiple hepatic low-attenuation lesions partially included on this study, only the largest of which can be confirmed as cysts.
- Head CT conducted on 11/07/2024:
No acute intracranial abnormality
-Cervical spine MRI conducted on 11/08/2024:
1. Moderate discogenic degenerative disease at C4/C5, C5/C6, and C6/C7.
2. Central disc-osteophyte complexes at C4/C5 and C5/C6 causing mild spinal cord compression.
3. 2 mm anterolisthesis of C4 on C5 secondary to moderate to severe bilateral facet joint arthrosis.
4. Mild right convex curvature of the cervicothoracic junction.
- Lumbar spine MRI conducted on 11/08/2024:
1. SEVERE DISCOGENIC DEGENERATIVE DISEASE at L2/L3 with a small diffuse disc bulge and moderate right-sided facet joint arthrosis causing minimal central canal stenosis and descending right-sided nerve root impingement.
2. Mild central canal stenosis and moderate left neural foraminal narrowing at L4/L5.
3. Mild grade 1 anterolisthesis of L5 on S1. Severe left-sided facet joint arthrosis at L5/S1. Previous right L5/S1 facetectomy.
4. Minimal central canal stenosis at L5/S1.
5. Mild left convex curvature of the midlumbar spine.
Procedures: Not applicable
Anticipated Discharge: 24 - 48 hours
Subjective/Interval History
-
Date of Service: November 09, 2024
Met with patient at the bedside. Was present with Dr. Hernández from neurology who discussed the findings of her most recent EMG and MRIs. Her most recent EMGs were abnormal and warranted further evaluation at [facility]. Dr. Hernández reached out to
liaison at the ALS clinic at the [facility] and informed the patient that they would be in touch with her and evaluate her as soon as possible. Patient voiced that she may choose to follow-up with [facility] instead but will take
time to decide.
Objective Data
-
Labs:
Laboratory Results
11/09/24
07:12
WBC 5.4
Hgb 12.9
Hct 39.2
Plt Count 225
Sodium 137
Potassium 4.6
Chloride 105
Carbon Dioxide 27
BUN 12
Creatinine 0.6
Glucose 88
Calcium 9.6
Total Bilirubin 0.6
AST 34
ALT 31
Alkaline Phosphatase 45
Vital Signs:
Vital Signs
Temp Pulse Resp BP Pulse Ox
98.6 F 80 16 123/72 96
11/09/24 11:19 11/09/24 11:19 11/09/24 11:19 11/09/24 11:19 11/09/24 11:19
I&O
11/08/24 11/09/24 11/10/24
06:59 06:59 06:59
Intake Total 480 / 480
Balance 480 / 480
Review of Systems
-
History Source: Patient
Constitutional: Reports No Symptoms
EENT: Reports No Symptoms Reported
Respiratory: Reports No Symptoms
Cardiac: Reports No Symptoms
Abdomen/GI: Reports No Symptoms
Breast: Reports No Symptoms
Genitourinary: Reports No Symptoms
Musculoskeletal: Reports Muscle Weakness
Neuro: Reports No Symptoms
Endocrine: Reports No Symptoms
Hematologic / Lymphatic: Reports No Symptoms
Allergy / Immunology: Reports No Symptoms
Physical Exam
-
General: Well Developed, Well Nourished and Comfortable
HEENT: Normocephalic, Atraumatic and Moist Mucous Membranes
Respiratory: Clear to Auscultation and Non Labored Respirations; Negative Wheezes, Rales, Rhonchi or Crackles
Cardiac: Regular Rhythm and S1/S2
Breast: Deferred by me
GI: Soft, Nontender, Nondistended and Normal Bowel Sounds
Rectal: Deferred by Provider
Genito-urinary: Deferred by me
Musculoskeletal: No Clubbing, No Cyanosis and No Edema
Skin: Warm and Dry; Negative Rash, Ulcers or Lesions
Neuro: Awake, Alert, Oriented and AO x 3
--- NOTE | 2024-11-09 13:28 | CM ---
Chart reviewed. Patient for d/c today
Therapy rec OP PT, patient is current w/ OP PT in [place]
Requested script for patient from hospitalist
No CM needs at this time
Plan: Home, resume OP PT
--- NOTE | 2024-11-09 13:34 | W.DCSUMMARY ---
Documented by User: Gurmeet Velazquez MD, Resident 11/09/24 13:47
Discharge Summary
Discharge Data
Date of Admission: 11/07/24
Date of Discharge: 11/09/24
-
Pending Results: Yes
Additional Pending Results:
Albumin (PEP)
Alpha�1�globulin
Alpha�2�globulins
Beta globulins
Gammaglobulin
Serum monoclonal protein
Serum PEP EER
Serum immunofixation reflex
Zinc
ANNE and SPEP Interp (immunology)
Hospital Course
Discharging Physician : Xiang Menon DO
Disposition : Home
Primary care physician : Tennille Jackson
Principal Discharge diagnosis : Motor Neuron Disease
Chronic Discharge diagnosis : Anxiety, osteoporosis, sleep difficulty, and hypothyroidism
Hospital Course : Patient is a 74-year-old woman with a history of osteoporosis and history of thyroid cancer in the 80s currently on Synthroid presenting with her for evaluation of leg weakness. Her symptoms began in late August. She
initially started to experience balance issues. She typically walked 4+ miles a day but lately had been feeling like she was not able to ambulate as she usually was able to. She felt like both of her legs were weak, particularly from the knees
down. The patient is very active and does yoga. At the time of her presentation she struggled to do her normal yoga exercises. She reported low back discomfort which she believes started after her balance issues began. Her back pain was worse in
the left lower lumbar region. There is no history of trauma to that area. She had no symptoms in her upper extremities. She denied any paresthesias, bowel/bladder issues, visual changes, headache. The patient had already been seen by her primary
care provider for the symptoms and has had an MRI of her brain and lumbar spine scheduled in August. She had been participating in physical therapy for the past 6 weeks prior to her presentation and had not noticed any improvement. She was
particularly having difficulty standing up on her toes while participating in PT. Patient stated that her symptoms started in her left leg then moved to her right leg. Started distal than proximal. She had occasional cramps, twitching, no sensory
symptoms, no speech/respiratory/vision/upper extremity symptoms. Patient was very concerned and believed that her symptoms may continue to progress if they are not addressed. The patient was admitted to [facility] under observation for progressive lower
extremity weakness with gait imbalance.
Patient underwent lumbar spine CT and there was no findings to suggest recent lumbar fracture nor lumbar vertebral compression fracture. There was some disc bulging and degenerative changes but none that would correlate with the symptoms that the
patient presented with. Head CT did not show any acute intracranial abnormalities. Cervical spine MRI showed findings that would not correlate with the symptoms that the patient was experiencing. Lumbar spine MRI did not show any acute processes
as well. EMG was conducted and it showed chronic and active acute muscle denervation in multiple muscles in both lower limbs and evidence of chronic denervation of the left flexor carpi radialis and left triceps which is commonly seen in motor
neuron disease including anterior horn cell disease. Nerve conduction study shows the sensory nerve studies are normal in both lower limbs and left upper limb. These findings were discussed with the patient. Referral made to ALS clinic of [place]
[facility]. [facility] has already reached out to the patient and will be seeing the patient in the near future. Patient also discussed getting a second opinion at [facility]. Patient believes that she is ready for discharge and would like to
be discharged at the present time
The patient has reached maximal benefit from this hospital admission and the patient is appropriate for discharge at the present time. There are no barriers that would impede the patient from being discharged from the hospital at the present time.
The patient should follow-up with their primary care provider within 1 week following discharge. Patient should follow-up with her neurologist in 1 to 2 weeks following discharge. Patient to be followed up by the ALS clinic at [facility] for
further evaluation and for definitive diagnosis within a week.
Important imaging findings :
- Lumbar spine CT conducted on 11/07/2024:
No findings to suggest recent lumbar spine fracture including lumbar vertebral compression fracture.
Mild levoscoliosis of the lumbar spine.
Disc bulges with degenerative changes at multiple levels throughout the lumbar spine, degenerative changes most prominent at the L2-L3 level. Evaluation for disc herniation cannot be excluded, markedly limited with this imaging modality without
intrathecal contrast.
Multiple hepatic low-attenuation lesions partially included on this study, only the largest of which can be confirmed as cysts.
- Head CT conducted on 11/07/2024:
No acute intracranial abnormality
-Cervical spine MRI conducted on 11/08/2024:
1. Moderate discogenic degenerative disease at C4/C5, C5/C6, and C6/C7.
2. Central disc-osteophyte complexes at C4/C5 and C5/C6 causing mild spinal cord compression.
3. 2 mm anterolisthesis of C4 on C5 secondary to moderate to severe bilateral facet joint arthrosis.
4. Mild right convex curvature of the cervicothoracic junction.
- Lumbar spine MRI conducted on 11/08/2024:
1. SEVERE DISCOGENIC DEGENERATIVE DISEASE at L2/L3 with a small diffuse disc bulge and moderate right-sided facet joint arthrosis causing minimal central canal stenosis and descending right-sided nerve root impingement.
2. Mild central canal stenosis and moderate left neural foraminal narrowing at L4/L5.
3. Mild grade 1 anterolisthesis of L5 on S1. Severe left-sided facet joint arthrosis at L5/S1. Previous right L5/S1 facetectomy.
4. Minimal central canal stenosis at L5/S1.
5. Mild left convex curvature of the midlumbar spine.
Procedure findings :
- EMG conducted on 11/08/2024:
Chronic and active/acute muscle denervation is present in multiple muscles in both lower limbs and evidence of chronic denervation in the left flexor carpi radialis and left triceps, as seen in motor neuron disease including anterior horn cell
disease.
The electrodiagnostic abnormalities could also be seen in lumbosacral polyradiculopathy and cervical radiculopathy, although the patient does not have clinical features suggestive of radiculopathy.
The nerve conduction study shows the sensory nerve studies are normal in both lower limbs and the left upper limb.
Discharge Plan
-
Patient Disposition: Home (Routine Discharge)
Discharge Diagnosis/Procedures: Motor Neuron Disease
Condition: Fair
Diet: No restrictions
Activity: No restrictions
Driving Restrictions: As prior to admission
Bathing Restrictions: None
Blood Work: Follow-up serology and immunology labs that are pending
Referrals:
Tennille Jackson MD [Family Provider, Internal Medicine] - in less than 1 week
Kahlil Smalls MD [Active, Neurology] - in one to two weeks
Additional Discharge Medication Instructions: Follow-up serology and immunology labs that are pending
Prescriptions:
Continued
Prevagen
1 cap PO DAILY
zolpidem [Ambien] 5 mg Tablet
5 mg PO HS PRN (Reason: sleep)
alendronate [Fosamax] 70 mg Tablet
70 mg PO WEEKLY Qty: 0 0RF
levothyroxine [Synthroid] 112 mcg Tablet
112 mcg PO DAILY Qty: 0 0RF
bupropion HCl 150 mg tablet extended release 24 hr
150 mg PO DAILY Qty: 0 0RF
Discharge Orders:
Discharge Patient (As Directed); Ordered 11/09/24
Ordered By: Gurmeet Velazquez
Discharge Date and Time
Print Language: SCOTTISH

Documented by User: Xiang Menon DO 11/09/24 14:05
Discharge Summary
Discharge Data
Date of Admission: 11/07/24
Date of Discharge: 11/09/24
Total time spent discharging patient (in min): 32
Discharge Plan
-
Patient Disposition: Home (Routine Discharge)
Discharge Diagnosis/Procedures: Motor Neuron Disease
Condition: Fair
Diet: No restrictions
Activity: No restrictions
Driving Restrictions: As prior to admission
Bathing Restrictions: None
Blood Work: Follow-up serology and immunology labs that are pending
Referrals:
Tennille Jackson MD [Family Provider, Internal Medicine] - in less than 1 week
Kahlil Smalls MD [Active, Neurology] - in one to two weeks
Additional Discharge Medication Instructions: Follow-up serology and immunology labs that are pending
Prescriptions:
Continued
Prevagen
1 cap PO DAILY
zolpidem [Ambien] 5 mg Tablet
5 mg PO HS PRN (Reason: sleep)
alendronate [Fosamax] 70 mg Tablet
70 mg PO WEEKLY Qty: 0 0RF
levothyroxine [Synthroid] 112 mcg Tablet
112 mcg PO DAILY Qty: 0 0RF
bupropion HCl 150 mg tablet extended release 24 hr
150 mg PO DAILY Qty: 0 0RF
Discharge Orders:
Discharge Patient (As Directed); Ordered 11/09/24
Ordered By: Gurmeet Velazquez
Discharge Date and Time
Print Language: SCOTTISH
--- NOTE | 2024-11-09 14:10 | W.PN.NEURO.1 ---
Today's Communication / Plan
-
Asked our [facility] admissions counselor to accelerate the patient's outpatient evaluation by the ALS clinic at [facility]. The patient and family are uncertain if they will follow through with [facility] or if they will
meet with [facility]
Await pending lab results
Continue outpatient physical therapy evaluations
fall precautions
Neuro Assessment/Plan
Assessment
74yo F with a history of osteoporosis and remote history of thyroid cancer in the 80s currently on Synthroid presented to [facility] on 11/07/24 with her for evaluation of leg weakness.
Head CT: No acute intracranial abnormality.
Lumbar CT: No findings to suggest recent lumbar spine fracture including lumbar vertebral compression fracture. Mild levoscoliosis of the lumbar spine. Disc bulges with degenerative changes at multiple levels throughout the lumbar spine,
degenerative changes most prominent at the L2-L3 level. Evaluation for disc herniation cannot be excluded, markedly limited with this imaging modality without intrathecal contrast. Multiple hepatic low-attenuation lesions partially included on this
study, only the largest of which can be confirmed as cysts.
Blood work is suggestive of mildly elevated CK of 282, normal CRP, unremarkable TSH and B12
Impressions: Motor neuropathy as suggested by 2 limb EMG study
Plan
Asked our [facility] admissions counselor to accelerate the patient's outpatient evaluation by the ALS clinic at [facility]. The patient and family are uncertain if they will follow through with [facility] or if they will
meet with [facility]
Await pending lab results
Continue outpatient physical therapy evaluations
fall precautions
Will follow as needed
Subjective/Objective
Subjective Data
Date of Service: November 09, 2024
No change in symptoms
Objective Data
Vital Signs
Temp Pulse Resp BP Pulse Ox
37.0 C 80 16 123/72 96
11/09/24 11:19 11/09/24 11:19 11/09/24 11:19 11/09/24 11:19 11/09/24 11:19
Lab Results
11/09/24 07:12
11/09/24 07:12
Sodium 137 mmol/L (135-145) 11/09/24 07:12
Potassium 4.6 mmol/L (3.5-5.1) 11/09/24 07:12
BUN 12 mg/dl (7-17) 11/09/24 07:12
Glucose 88 mg/dl (70-99) 11/09/24 07:12
Calcium 9.6 mg/dl (8.4-10.2) 11/09/24 07:12
Vitamin B12 522 pg/ml (239-931) 11/08/24 07:41
Patient Allergies
No Known Allergies Allergy (Unverified 11/07/24 07:58)
Review of Systems
-
History Source: Patient
All other systems: Reviewed and negative
Physical Exam
-
General: No Apparent Distress and Appears Stated Age
Eyes: Round OU, [place] Conjunctivae and No Ptosis
HEENT: Anicteric and Moist Mucous Membranes
Neck: Full Range of Motion
Respiratory: No Dyspnea
Cardiac: No JVD
GI: Non-distended
Skin: Unremarkable
Extremities: No Clubbing, No Cyanosis and No Edema
Psych: Intact Judgement/Insight
Extended Neurological Exam
Mood & Affect: Mood Unremarkable and Affect Unremarkable
Attention Span & Concentration: Awake, Alert and Interactive
Memory: Unremarkable
Tremor: Hand Tremor Absent and Head Tremor Absent
Speech: Quality Unremarkable and Quantity Unremarkable
Cranial Nerve II: Left Eye: Pupillary Size Unremarkable and Visual Bailey Grossly Intact
Cranial Nerve II: Right Eye: Pupillary Size Unremarkable and Visual Bailey Grossly Intact
Cranial Nerves III, IV, : Extraocular Movement: Grossly Intact
Cranial Nerve VII: Facial Symmetry: Normal Facial Symmetry
Cranial Nerve VIII: Hearing: Unremarkable Hearing to Normal Conversational Volume
Muscle Strength, Overall: Spontaneously Moves
Coordination: Reaches for Objects without Difficulty
Data Reviewed
-
MRI Cervical Spine: Report Reviewed
MRI Lumbar Spine: Report Reviewed
Labs: Report Reviewed
EMG: Report Reviewed
Reviewed with: Physician, Nurse, Patient and Family
Old Records: Summarized
[2024-11-10 11:42] LABS: Lyme Antibody Screen, EIA Negative (Negative)
[2024-11-12 12:54] LABS: Albumin 4.04 g/dL (3.75-5.01); SPEP IFE Reflex Not Done; Total Protein-Electrophoresis 6.1 g/dL (6.3-8.2)
== END 2024-11-09 14:33 | disposition home or self-care (01) ==
LOC: 4 EAST ACU 15:30
PROVIDERS: Physician Assistant; Psychiatry & Neurology Neurology; ADMITTING PHYSICIAN Internal Medicine; ATTENDING PHYSICIAN Internal Medicine; CONSULT PHYSICIAN Psychiatry & Neurology Clinical Neurophysiology; EMERGENCY PHYSICIAN Emergency Medicine; FAMILY PHYSICIAN Internal Medicine
DX: G12.29 Other motor neuron disease (principal); M47.26 Other spondylosis with radiculopathy, lumbar region; G62.9 Polyneuropathy, unspecified; F41.9 Anxiety disorder, unspecified; M81.0 Age-related osteoporosis without current pathological fracture; M25.78 Osteophyte, vertebrae; G95.20 Unspecified cord compression; Z85.850 Personal history of malignant neoplasm of thyroid; E03.9 Hypothyroidism, unspecified; M43.12 Spondylolisthesis, cervical region; M43.17 Spondylolisthesis, lumbosacral region; Z79.899 Other long term (current) drug therapy
CPT/HCPCS: 70450; 72131; 72156; 72158; 80048; 80053; 82550; 82553; 82607; 84155; 84165; 84443; 84630; 85025; 85027; 86140; 86618; 95886; 95910; 97163; 99285; A9575; G0378